=== PATIENT | female | born 1945 | race Caucasian/White ===

== ENCOUNTER → 2017-01-10 | Outpatient (CLI) | payer MEDICARE, OTHER | LOC: EMI 07:48 | DX: M51.36 Other intervertebral disc degeneration, lumbar region (principal); G89.4 Chronic pain syndrome; Z98.890 Other specified postprocedural states | CPT/HCPCS: 72148 ==

== ENCOUNTER → 2020-12-24 | Outpatient (CLI) | payer OTHER ==
[~2020-12-24] MED LIST: ALPHA LIPOIC A600 MG PO; ANTIVERT 25MG T25 MG PO; ASPIR 8181 MG PO; GABAPENTIN600 MG PO; GLIMEPIRIDE1 MG PO; HYDRALAZINE HCL25 MG PO; IMDUR ER TAB 3030 MG PO; LEVOTHYROXINE175 MCG PO; LISINOPRIL-HCT1 EAC1 PO; MAGNESIUM OXID500 MG PO; MEDROL4 MG PO; METOPROLOL TART50 MG PO; OXYCODONE-ACET1 EACH PO; PRAVASTATIN SOD40 MG PO; RANITIDINE HCL300 M1 PO; TYLENOL 325MG325 MG PO; VITAMIN B-122500 MCG SL; VITAMIN B-650 MG PO; ZANAFLEX 4 MG TA4 MG PO; ZANAFLEX4 MG PO; ZOFRAN ODT 4 MG4 MG PO
[2020-12-25 05:09] LABS: CREATININE, URINE 145.1 mg/dL (Not Estab.)
== END ==
LOC: LAB 09:13
PROVIDERS: Emergency Medicine
DX: N18.30 Chronic kidney disease, stage 3 unspecified (principal); J20.9 Acute bronchitis, unspecified; I10 Essential (primary) hypertension; E11.9 Type 2 diabetes mellitus without complications; E78.2 Mixed hyperlipidemia
CPT/HCPCS: 36415; 80053; 82043; 82570; 83036

== ENCOUNTER → 2020-12-30 | Outpatient (CLI) | payer OTHER ==
[2020-12-30 12:09] LABS: HEMOGLOBIN 12.8 gm/dl (12.3-15.3); RED BLOOD COUNT 4.35 M/UL (4.00-5.10); WHITE BLOOD COUNT 8.7 K/UL (4.5-11.0)
== END ==
LOC: EXRD 11-09 10:30 → LAB 10:52 → EXRD 13:00
PROVIDERS: Emergency Medicine
DX: R05 Cough (principal); M81.0 Age-related osteoporosis without current pathological fracture; M54.6 Pain in thoracic spine; R53.83 Other fatigue; E55.9 Vitamin D deficiency, unspecified; E53.8 Deficiency of other specified B group vitamins; D50.9 Iron deficiency anemia, unspecified; M85.88 Other specified disorders of bone density and structure, other site; M47.814 Spondylosis without myelopathy or radiculopathy, thoracic region
CPT/HCPCS: 36415; 71046; 72072; 77080; 82607; 82728; 83540; 84443; 85025

== ENCOUNTER → 2021-02-09 | Outpatient (CLI) | payer OTHER | LOC: KOH-I 02-03 09:00 | DX: R22.1 Localized swelling, mass and lump, neck (principal) | CPT/HCPCS: 70490 ==

== ENCOUNTER 2021-04-22 10:22 | Emergency (ER) | payer OTHER ==
[2021-04-22 11:00] LABS: HEMOGLOBIN 12.3 gm/dl (12.3-15.3); RED BLOOD COUNT 4.31 M/UL (4.00-5.10); WHITE BLOOD COUNT 7.3 K/UL (4.5-11.0)
== END 2021-04-22 14:26 | disposition home or self-care (01) ==
LOC: ER1 10:22
PROVIDERS: Physician Assistant Medical
DX: R06.02 Shortness of breath (principal); R60.0 Localized edema; I13.0 Hypertensive heart and chronic kidney disease with heart failure and stage 1 through stage 4 chronic kidney disease, or unspecified chronic kidney disease; E11.22 Type 2 diabetes mellitus with diabetic chronic kidney disease; N18.30 Chronic kidney disease, stage 3 unspecified
CPT/HCPCS: 71045; 80053; 83880; 84484; 85025; 96374; 99285

== ENCOUNTER 2021-04-23 20:33 | Emergency (ER) | payer OTHER ==
[2021-04-23 23:26] LABS: HEMOGLOBIN 13.9 gm/dl (12.3-15.3); RED BLOOD COUNT 4.67 M/UL (4.00-5.10); WHITE BLOOD COUNT 12.8 K/UL (4.5-11.0)
[2021-04-23 23:54] LABS: BUN/CREATININE RATIO 19 (0-10)
[2021-04-24] MEDS ORDERED: ZOFRAN ODT 4 MG4 MG SL (03:02)
== END 2021-04-24 03:15 | disposition home or self-care (01) ==
LOC: ER1 20:33
PROVIDERS: Physician Assistant
DX: R51.9 Headache, unspecified (principal); R42 Dizziness and giddiness; G89.29 Other chronic pain; R68.83 Chills (without fever); Z20.822 Contact with and (suspected) exposure to COVID-19; I12.9 Hypertensive chronic kidney disease with stage 1 through stage 4 chronic kidney disease, or unspecified chronic kidney disease; E11.22 Type 2 diabetes mellitus with diabetic chronic kidney disease; N18.9 Chronic kidney disease, unspecified; Z90.710 Acquired absence of both cervix and uterus
CPT/HCPCS: 70450; 71045; 80053; 81001; 82550; 82553; 82962; 83874; 84484; 85025; 93005; 96374; 96375; 99284; J1200; J2405; J2765; U0002

== ENCOUNTER 2021-09-19 22:48 | Emergency (ER) | payer OTHER ==
[~2021-09-19 22:48] MED LIST changes: +ZOFRAN ODT 4 MG4 MG SL
[2021-09-20 00:59] LABS: HEMOGLOBIN 14.4 gm/dl (12.3-15.3); RED BLOOD COUNT 4.84 M/UL (4.00-5.10); WHITE BLOOD COUNT 14.4 K/UL (4.5-11.0)
[2021-09-20 01:26] LABS: BUN/CREATININE RATIO 18 (0-10)
[2021-09-20] MEDS ORDERED: AFRIN15 M1 (04:46)
[2021-09-20] MEDS ORDERED: CEFUROXIME500 MG PO (04:46)
== END 2021-09-20 05:12 | disposition home or self-care (01) ==
LOC: ER1 22:48
PROVIDERS: Family Medicine
DX: N39.0 Urinary tract infection, site not specified (principal); R07.9 Chest pain, unspecified; J32.8 Other chronic sinusitis; R51.9 Headache, unspecified; E11.9 Type 2 diabetes mellitus without complications; I10 Essential (primary) hypertension; Z90.710 Acquired absence of both cervix and uterus
CPT/HCPCS: 0240U; 70450; 71045; 80053; 81001; 82550; 82553; 83874; 84439; 84443; 84484; 85025; 87086; 93005; 96374; 99285; J2405

== ENCOUNTER → 2021-10-21 | Outpatient (CLI) | payer OTHER ==
[~2021-10-21] MED LIST changes: +AFRIN15 M1; +CEFUROXIME500 MG PO
== END ==
LOC: RT 12:16
DX: I10 Essential (primary) hypertension (principal); E11.9 Type 2 diabetes mellitus without complications
CPT/HCPCS: 93005

== ENCOUNTER → 2021-10-27 | Outpatient (CLI) | payer OTHER ==
[2021-10-27 11:25] LABS: HEMOGLOBIN 13.2 gm/dl (12.3-15.3); RED BLOOD COUNT 4.5 M/UL (4.00-5.10); WHITE BLOOD COUNT 7.7 K/UL (4.5-11.0)
[2021-10-27 17:18] LABS: BUN/CREATININE RATIO 9 (0-10)
[2021-10-28 11:15] LABS: CREATININE, URINE 149.4 mg/dL (Not Estab.)
[2021-10-28 18:09] LABS: CHOLESTEROL, TOTAL 156 mg/dL (100-199); HDL SIZE 9.1 nm (>=9.2); HDL-C 46 mg/dL (>39); HDL-P (TOTAL) 30.6 umol/L (>=30.5); LARGE HDL-P 5.3 umol/L (>=4.8); LARGE VLDL-P 5.5 nmol/L (<=2.7); LDL SIZE 21.2 nm (>20.5); LDL SIZE 21.2 nm (>=20.8); LDL-C 87 mg/dL (0-99); LDL-P 1020 nmol/L (<1000); LP-IR SCORE 53 (<=45); SMALL LDL-P 426 nmol/L (<=527); TRIGLYCERIDES 131 mg/dL (0-149); VLDL SIZE 48.1 nm (<=46.6)
== END ==
LOC: LAB 10:06
PROVIDERS: Emergency Medicine
DX: E03.8 Other specified hypothyroidism (principal); I12.9 Hypertensive chronic kidney disease with stage 1 through stage 4 chronic kidney disease, or unspecified chronic kidney disease; E11.22 Type 2 diabetes mellitus with diabetic chronic kidney disease; N18.30 Chronic kidney disease, stage 3 unspecified; E78.2 Mixed hyperlipidemia; E11.69 Type 2 diabetes mellitus with other specified complication
CPT/HCPCS: 36415; 80053; 80061; 82043; 82570; 83036; 83704; 84443; 84550; 85025

== ENCOUNTER → 2021-12-01 | Outpatient (CLI) | payer OTHER | LOC: NM 08:44 | DX: R06.02 Shortness of breath (principal) | CPT/HCPCS: 78452; 93017; A9502; J2785 ==

== ENCOUNTER → 2021-12-06 | Outpatient (CLI) | payer OTHER | LOC: KOH-I 10:15 | DX: R06.02 Shortness of breath (principal); J98.4 Other disorders of lung | CPT/HCPCS: 71046; 71250 ==

== ENCOUNTER → 2021-12-23 | Outpatient (CLI) | payer OTHER ==
[2021-12-23 12:36] LABS: HEMOGLOBIN 13.3 gm/dl (12.3-15.3); RED BLOOD COUNT 4.5 M/UL (4.00-5.10); WHITE BLOOD COUNT 9.3 K/UL (4.5-11.0)
== END ==
LOC: LAB 11:53
PROVIDERS: Internal Medicine Nephrology
DX: D50.0 Iron deficiency anemia secondary to blood loss (chronic) (principal)
CPT/HCPCS: 36415; 82728; 83540; 83550; 85025; 85027

== ENCOUNTER → 2021-12-28 | Outpatient (CLI) | payer OTHER | LOC: ECHO 09:03 | DX: R06.02 Shortness of breath (principal); I08.1 Rheumatic disorders of both mitral and tricuspid valves | CPT/HCPCS: ECHO; 93306 ==

== ENCOUNTER → 2022-01-25 | Outpatient (CLI) | payer OTHER ==
[~2022-01-25] MED LIST changes: +ACID CONTROLLER20 MG PO; +COZAAR50 MG PO; +HYDRALAZINE HCL50 MG PO; +ISOSORBIDE MONO10 MG PO; +JANUVIA50 MG PO; +LEVOTHYROXINE150 MC1 PO; +LIPITOR TAB 2020 MG PO; +LOPRESSOR50 MG PO; +PAROXETINE HCL40 MG PO; +PROTONIX40 MG PO; +VITAMIN D375 MCG PO
[2022-01-25 17:51] LABS: HEMOGLOBIN 13.3 gm/dl (12.3-15.3); RED BLOOD COUNT 4.47 M/UL (4.00-5.10); WHITE BLOOD COUNT 8.9 K/UL (4.5-11.0)
[2022-01-25 18:13] LABS: BUN/CREATININE RATIO 15 (0-10)
== END ==
LOC: LAB 15:52
PROVIDERS: Internal Medicine Interventional Cardiology
DX: E11.9 Type 2 diabetes mellitus without complications (principal); E78.5 Hyperlipidemia, unspecified; E07.9 Disorder of thyroid, unspecified; I10 Essential (primary) hypertension; I25.10 Atherosclerotic heart disease of native coronary artery without angina pectoris; G47.33 Obstructive sleep apnea (adult) (pediatric); F32.A Depression, unspecified; R94.39 Abnormal result of other cardiovascular function study
CPT/HCPCS: 36415; 80048; 85025; 85610; 85730

== ENCOUNTER → 2022-01-30 | Outpatient (CLI) | payer OTHER ==
[~2022-01-30] MED LIST changes: +PHENERGAN 12.12.5 M1 PO
== END ==
LOC: CATH 06:42
DX: Q24.5 Malformation of coronary vessels (principal); I25.118 Atherosclerotic heart disease of native coronary artery with other forms of angina pectoris; D64.9 Anemia, unspecified; E11.9 Type 2 diabetes mellitus without complications; R42 Dizziness and giddiness; I70.0 Atherosclerosis of aorta; E78.00 Pure hypercholesterolemia, unspecified; G47.33 Obstructive sleep apnea (adult) (pediatric); I10 Essential (primary) hypertension; K21.9 Gastro-esophageal reflux disease without esophagitis; E66.9 Obesity, unspecified; Z68.41 Body mass index [BMI] 40.0-44.9, adult; Z79.82 Long term (current) use of aspirin; Z82.49 Family history of ischemic heart disease and other diseases of the circulatory system
CPT/HCPCS: 82962; 99152; C1769; C1887; C1894; J1644; J2250; J3010; J7030; Q9967

== ENCOUNTER 2022-02-01 11:04 | Emergency (ER) | payer OTHER ==
[~2022-02-01 11:04] MED LIST changes: -PHENERGAN 12.12.5 M1 PO
[2022-02-01 11:25] LABS: HEMOGLOBIN 16.4 gm/dl (12.3-15.3); RED BLOOD COUNT 5.4 M/UL (4.00-5.10); WHITE BLOOD COUNT 17.7 K/UL (4.5-11.0)
[2022-02-01] MEDS ORDERED: PHENERGAN 12.12.5 M1 PO (20:20)
== END 2022-02-01 20:35 | disposition home or self-care (01) ==
LOC: ER1 11:04
DX: I95.1 Orthostatic hypotension (principal); R19.7 Diarrhea, unspecified; E11.9 Type 2 diabetes mellitus without complications
CPT/HCPCS: 80053; 81001; 82550; 82553; 83690; 84484; 85025; 93005; 96361; 96374; 99284; J2405; J2550; J7030; J7040

== ENCOUNTER → 2022-02-22 | Outpatient (CLI) | payer OTHER ==
[~2022-02-22] MED LIST changes: +PHENERGAN 12.12.5 M1 PO
== END ==
LOC: RAD 09:00
DX: R11.0 Nausea (principal); R93.89 Abnormal findings on diagnostic imaging of other specified body structures
CPT/HCPCS: 74250

== ENCOUNTER → 2022-03-08 | Outpatient (CLI) | payer OTHER | LOC: EXRD 13:42 | DX: I65.22 Occlusion and stenosis of left carotid artery (principal) | CPT/HCPCS: 93880 ==

== ENCOUNTER → 2022-04-25 | Outpatient (CLI) | payer OTHER | LOC: LAB 16:34 | DX: I25.10 Atherosclerotic heart disease of native coronary artery without angina pectoris (principal); R42 Dizziness and giddiness; E78.5 Hyperlipidemia, unspecified; I10 Essential (primary) hypertension; Z00.00 Encounter for general adult medical examination without abnormal findings | CPT/HCPCS: 36415; 83880 ==